=== PATIENT | female | born 1990 | race Caucasian/White ===

== ENCOUNTER 2018-11-11 10:31 | Emergency (ER) | payer MEDICAID ==
[2018-11-11] MEDS: KETOROLAC 60 MG INJ IM (12:25)
== END 2018-11-11 13:33 | disposition home or self-care (01) ==
LOC: FTE 10:31
DX: M25.511 Pain in right shoulder (principal); M25.561 Pain in right knee; M25.562 Pain in left knee
CPT/HCPCS: 81025; 96372; 99284-25